=== PATIENT | female | born 1945 | race Caucasian/White ===

== ENCOUNTER → 2017-05-23 | Outpatient (CLI) | payer MEDICARE, BC ==
[~2017-05-23] MED LIST: ADV100/50 INH; ALB18R INH; BUPR-472 PO; CALC500T6 PO; CEFA-162 PO; CHOL100058 PO; CLON-298 PO; CLON-303 *; DOCU-416 PO; DUL30 PO; ERGO500029 PO; IBAN150T6 PO; IBUP-1455 PO; METO-733 PO; MIRT-18 PO; MONT10TA PO; MULT-1101 PO; OXYC-854 PO; OXYC-865 PO; PER PO; PRAZ2CAP26 PO; TRAM100T22 PO; TRAZ-156 PO; [UNRECOGNIZED DRUG - CODE] PO
--- NOTE | 2017-05-23 17:39 | RADIOLOGY IMAGING REPORT ---
FACILITY: [facility] PATIENT NAME: MAMI DALTON : [id number] MR: [id number] V: [id number] EXAM DATE: [id number] ORDERING PHYSICIAN: KELVIN WIGGINS TECHNOLOGIST: Alvaro Sanford PROCEDURE: STRESS ECHOCARDIOGRAPHY COMPARISON: None. INDICATIONS: HYPOTENSION/IRREGULAR HEART BEAT FINDINGS: After informed consent the patient was exercised using the Chi protocol. She was able to complete 6 min at which time she achieved 8.2 Mets & 83% of the predicted maximum heart rate. The test was stopped due to the fact that the patient was complaining of weakness in her knee. She was afraid she was going to fall. Patient had no complaints of any chest pains or chest pressures & no complaints of any shortness of breath. With exercise she had no ST segment changes of ischemia. There were no arrhythmias noted. Her baseline EKG showed a normal sinus rhythm with nonspecific ST segment changes in her lateral leads. Her blood pressure did come up with exercise but she has a low blood pressure to start with. It went from 90/64 to 120/76. ECHOCARDIOGRAPHIC PORTION OF THE STRESS TEST: At rest the patient had normal left ventricular systolic function of 76% with a Grade 1/4 decrease in diastolic function. Trace of mitral & tricuspid insufficiency possibly physiologic in nature. The estimated right ventricular systolic pressures are within normal ranges at 28mm Hg. With exercise the patient had normal hyperdynamic response to exercise with no left ventricular segmental wall motion abnormalities. CONCLUSION: 1. Normal stress echocardiograph with normal function systolically at rest with hyperdynamic response to exercise & low probability of ischemia. 2. Lowish blood pressure that did respond with exercise. 3. A trace of mitral & tricuspid insufficiency possibly physiologic in nature with normal right ventricular systolic pressures. 4. A Grade 1/4 decrease in diastolic function consistent with age. Dictated by: Ranjit Bragg M.D. on 05/23/2017 at 9:56 Transcribed by: JAILENE on 05/23/2017 at 16:14 Approved by: Ranjit Bragg M.D. on 05/23/2017 at 17:37 [facility]
--- NOTE | 2017-05-24 08:29 | RT STRESS TEST REPORT ---
FACILITY: [facility] PATIENT NAME: MAMI DALTON : [id number] MR: [id number] V: [id number] EXAM DATE: ORDERING PHYSICIAN: ANTONIA ALLEN TECHNOLOGIST: Luis Felipe Acquisition Time: 2017-05-23 07:16:08 Total Exercise Time: 00:06:03 Test Indications: Chest Discomfort Medications: unknown Protocol: COMLY/GRETEL Max HR: 123 BPM 83% of Pred: 147 BPM Max BP: 120/076 mmHG Max Work Load: 8.2 METS see echo report Confirmed by MAME GIFFORD ([id number]) on 05/24/2017 8:28:14 AM Referred By: Antonia Allen Overread By: MAME GIFFORD
== END ==
LOC: US 06:52
PROVIDERS: ATTEND Nurse Practitioner Family
DX: I34.0 Nonrheumatic mitral (valve) insufficiency (principal); I07.1 Rheumatic tricuspid insufficiency; I50.30 Unspecified diastolic (congestive) heart failure
CPT/HCPCS: 93017; 93325; 93350

== ENCOUNTER → 2017-07-21 | Outpatient (CLI) | payer MEDICARE, BC ==
[~2017-07-21] MED LIST changes: -TRAM100T22 PO; +TRAM100T8 PO
--- NOTE | 2017-07-21 15:49 | RADIOLOGY IMAGING REPORT ---
FACILITY: [facility] - [place] PATIENT NAME: Celi Hutchinson : 1945 MR: [id number] V: [id number] EXAM DATE: ORDERING PHYSICIAN: KELVIN WIGGINS TECHNOLOGIST: Location: [facility] [place] Patient: Celi Hutchinson : 1945 Visit/Account:[id number] Date of Sevice: 07/21/2017 Exam type: FINGER RIGHT 4TH DIGIT History: Unspecified sprain of right ring finger Comparison: None. Findings: There is no evidence of acute fracture dislocation involving the right fourth finger. No significant arthritic changes seen. No radiopaque foreign bodies are identified. IMPRESSION: 1. No evidence of acute fracture-dislocation involving the right fourth finger Report Dictated By: Matilda Gayle MD at 07/21/2017 3:43 PM Report E-Signed By: Matilda Gayle MD at 07/21/2017 3:45 PM WSN:[email or web address]
== END ==
LOC: RAD 13:19
PROVIDERS: ATTEND Nurse Practitioner Family
DX: S63.614A Unspecified sprain of right ring finger, initial encounter (principal); X58.XXXA Exposure to other specified factors, initial encounter

== ENCOUNTER → 2017-07-21 | Outpatient (CLI) | payer MEDICARE, BC | LOC: LAB 13:20 | PROVIDERS: ATTEND Urology | DX: R33.8 Other retention of urine (principal); N39.41 Urge incontinence; N39.44 Nocturnal enuresis; S63.614A Unspecified sprain of right ring finger, initial encounter; R82.99 Other abnormal findings in urine | CPT/HCPCS: 87088 ==

== ENCOUNTER → 2017-09-14 | Outpatient (CLI) | payer MEDICARE, BC | LOC: LAB 12:52 | PROVIDERS: ATTEND Urology | DX: N39.0 Urinary tract infection, site not specified (principal); B96.20 Unspecified Escherichia coli [E. coli] as the cause of diseases classified elsewhere | CPT/HCPCS: 81001; 87077; 87088; 87186 ==

== ENCOUNTER → 2017-09-22 | Outpatient (REF) | payer MEDICARE, BC | LOC: ZZSENDIN 14:32 | PROVIDERS: ATTEND Urology | DX: N39.0 Urinary tract infection, site not specified (principal); R82.79 Other abnormal findings on microbiological examination of urine | CPT/HCPCS: 87088 ==

== ENCOUNTER → 2018-05-07 | Outpatient (CLI) | payer MEDICARE, BC ==
[~2018-05-07] MED LIST changes: -CLON-298 PO; +CLON-331 PO; -TRAZ-156 PO; +TRAZ50TA34 PO
[2018-05-07 13:21] LABS: PLATELET COUNT, AUTOMATED 211 K/uL (150-450)
--- NOTE | 2018-05-07 13:50 | EKG ---
FACILITY: [facility] [place] PATIENT NAME: MAMI DALTON : [id number] MR: [id number] V: [id number] EXAM DATE: ORDERING PHYSICIAN: DOMINGO RAMOS TECHNOLOGIST: TERRENCE Amaya Reason : Blood Pressure : / mmHG Vent. Rate : 077 BPM Atrial Rate : 077 BPM P-R Int : 168 ms QRS Dur : 078 ms QT Int : 384 ms P-R-T Axes : 081 090 086 degrees QTc Int : 434 ms Normal sinus rhythm Rightward axis Septal infarct , age undetermined T wave abnormality, consider anterior ischemia Abnormal ECG No previous ECGs available Confirmed by DOMINGO GONZALEZ ([id number]) on 05/07/2018 10:10:35 PM Referred By: Confirmed By:DOMINGO GONZALEZ
--- NOTE | 2018-05-07 15:23 | RADIOLOGY IMAGING REPORT ---
FACILITY: [facility] - [place] PATIENT NAME: Celi Hutchinson : 1945 MR: [id number] V: [id number] EXAM DATE: ORDERING PHYSICIAN: SONIA RIVAS TECHNOLOGIST: Location: [facility] [place] Patient: Celi Hutchinson : 1945 Visit/Account:[id number] Date of Sevice: 05/07/2018 EXAMINATION: Cervical spine series, 3 views 05/07/2018 1:23 PM HISTORY: Preop. Rheumatoid arthritis. Rotator cuff tear in the shoulder. COMPARISON: None FINDINGS: Images include lateral neutral, flexed, and extended images. There is no abnormal atlantoa xial motion. Cervical vertebral body heights are well-preserved. Disc height loss and endplate spur ring from C3-4 downward most notably at C5-6. No acute bony finding. Precervical soft tissues are n ot thickened. IMPRESSION: Cervical spondylosis. No atlantoaxial instability evident. Report Dictated By: Geovany Mccall MD at 05/07/2018 3:18 PM Report E-Signed By: Geovany Mccall MD at 05/07/2018 3:19 PM WSN:[email or web address]
== END ==
LOC: RAD 13:02
PROVIDERS: ATTEND Orthopaedic Surgery
DX: Z01.812 Encounter for preprocedural laboratory examination (principal); Z01.810 Encounter for preprocedural cardiovascular examination; S46.011A Strain of muscle(s) and tendon(s) of the rotator cuff of right shoulder, initial encounter; M47.892 Other spondylosis, cervical region; R94.31 Abnormal electrocardiogram [ECG] [EKG]
CPT/HCPCS: 36415; 72040; 81001; 82040; 82247; 82310; 82374; 82435; 82565; 82947; 84075; 84132; 84155; 84295; 84450; 84460; 84520; 85025; 93005

== ENCOUNTER → 2018-05-09 | Outpatient (REF) | payer MEDICARE, BC | LOC: ZZSENDIN 13:16 | PROVIDERS: ATTEND Dentist | DX: D10.39 Benign neoplasm of other parts of mouth (principal) | CPT/HCPCS: 88305 ==

== ENCOUNTER 2018-05-29 01:13 | Inpatient (IN) | payer MEDICARE, BC ==
[2018-05-28 15:40] LABS: INR 0.99
[2018-05-29] VITALS (13 sets, daily range): BP systolic 86–140; BP diastolic 48–94
[~2018-05-29] VITALS: Ht 165.1 cm; Wt 74.8 kg
[~2018-05-29 01:13] MED LIST changes: +CEPH500C24 PO
[2018-05-29] MEDS ORDERED: ONDANSETRON 4 MG/2 ML VIAL ONE (09:24)
[2018-05-29] MEDS ORDERED: fentaNYL CITR 250 MCG/5 ML AMP ONE (09:24)
[2018-05-29] MEDS ORDERED: ROCURONIUM BROM 10 MG/ML 10 ML ONE (09:24)
[2018-05-29] MEDS ORDERED: PROPOFOL EMUL(*) 10MG/ML 20 ML 20 ML ONE (09:24)
[2018-05-29] MEDS ORDERED: SUGAMMADEX SOD 200 MG/2 ML SDV ONE (09:24)
[2018-05-29] MEDS ORDERED: LIDOCAINE MPF 1% 5 ML VIAL ONE (09:24)
[2018-05-29] MEDS ORDERED: DEXAMETHASONE SOD 4 MG/ML VIAL ONE (09:24)
[2018-05-29] MEDS ORDERED: KETAMINE HCL 200 MG/20 ML MDV ONE (09:25)
[2018-05-29] MEDS ORDERED: CELECOXIB 200 MG CAP PO ONE (11:00)
[2018-05-29] MEDS ORDERED: ROPIVACAINE 0.2% 20 ML VIAL ONE (11:00)
[2018-05-29] MEDS ORDERED: ACETAMINOPHEN 500 MG TAB PO ONE (11:00)
[2018-05-29] MEDS ORDERED: FAMOTIDINE 20 MG TAB PO ONE (11:00)
[2018-05-29] MEDS ORDERED: LIDOCAINE/SOD BICARB 8.4% SYR ID ONE (11:00)
[2018-05-29] MEDS ORDERED: TRANEXAMIC AC 1000 MG/10ML SDV 1,000 MG in DEXTROSE 5% 50 ML BAG 50 ML IV ONE (11:00)
[2018-05-29] MEDS ORDERED: PREGABALIN 75 MG CAPSULE PO ONE (11:00)
[2018-05-29] MEDS ORDERED: BACITRACIN 50000 UNIT/VIAL 100,000 UNIT in NS 0.9% 3000 ML IRRIGATION BAG 3,000 ML IR ONE (11:00)
[2018-05-29] MEDS ORDERED: CLINDAMYCIN(*) 900 MG/NS 50 ML 50 ML IVPB ONE (11:00)
[2018-05-29] MEDS ORDERED: LIDO/EPI 2% MPF 1:200,000 20ML ONE (11:00)
[2018-05-29] MEDS ORDERED: NORMOSOL R SOLN(*) 1000 ML BAG 1,000 ML IV PRN (11:00)
[2018-05-29] MEDS ORDERED: ROPIVACAINE/EPI/CLONIDINE/KET 50 ML SYRINGE INJ ONE (11:00)
[2018-05-29] MEDS ORDERED: MIDAZOLAM 2 MG/2 ML VIAL IVP PRN (11:00)
[2018-05-29] MEDS ORDERED: MAGNESIUM HYDROXIDE* 30ML UDCP PO PRN (13:55)
[2018-05-29] MEDS ORDERED: FLUSH 10 ML SYR IVP PRN (13:55)
[2018-05-29] MEDS ORDERED: BISACODYL 10 MG SUPP PR PRN (13:55)
[2018-05-29] MEDS ORDERED: ZOLPIDEM TARTRATE 5 MG TAB PO PRN (13:55)
[2018-05-29] MEDS ORDERED: diphenhydrAMINE 25 MG CAP PO PRN (13:55)
[2018-05-29] MEDS ORDERED: diphenhydrAMINE 50 MG/ML VIAL IVP PRN (13:55)
[2018-05-29] MEDS ORDERED: LR 1000 ML BAG 1000 ML IV PRN (13:55)
[2018-05-29] MEDS ORDERED: ONDANSETRON 4 MG/2 ML VIAL IVP PRN (13:55)
[2018-05-29] MEDS ORDERED: MAGNESIUM CITRATE 300 ML BTL PO PRN (13:55)
[2018-05-29] MEDS ORDERED: HYDROmorphone HCL 2 MG/ML SDV IVP PRN (13:55)
[2018-05-29] MEDS ORDERED: PROMETHAZINE 25 MG/ML 1 ML AMP IVP PRN (13:55)
[2018-05-29] MEDS ORDERED: fentaNYL CITR 100 MCG/2 ML AMP ONE (14:02)
--- NOTE | 2018-05-29 14:41 | OPERATIVE REPORT 1 ---
EVENT DATE: May 29, 2018 SURGEON: Gustabo Valenzuela MD ANESTHESIOLOGIST: Jose Arnold MD ANESTHESIA: General LMA. VERTICAL BORING MILL OPERATOR: DALLAS Mckeon, REGIONAL OPERATIONS MANAGER PREOPERATIVE DIAGNOSIS Right shoulder rotator cuff tear arthropathy. POSTOPERATIVE DIAGNOSIS Right shoulder rotator cuff tear arthropathy. PROCEDURE PERFORMED 1. Right reverse total shoulder arthroplasty. 2. Removal of implant deep x2 of the prior surgical anchors from the prior rotator cuff repair. FINDINGS The patient had a complete tear of the rotator cuff and arthritis showing associated with this. ESTIMATED BLOOD LOSS About 100 cc's. DRAINS None. COMPLICATIONS None. TOURNIQUET TIME Not applicable. IMPLANTS USED DJO Reverse with 32/-4 head, standard baseplate, four locking screws within the baseplate and an 8 standard stem with +4 liner. INDICATIONS AND HISTORY This patient is a 72-year-old female who presented to my clinic for evaluation of right shoulder pain and irritation. She had a prior rotator cuff repair but then had pain and irritation associated with it and was still continuing to have issues. An MRI revealed that she had a full-thickness rotator cuff tear and was retracted back to the interval of the glenoid. It did not look amenable for repair and so she wanted to go ahead with a reverse total shoulder arthroplasty today, May 29, 2018. We went over the risks and benefits associated with this and informed consent was obtained at the last clinic visit. We talked about there is no guarantee and it may not make it better and she may lose some motion associated with it and she may still have some discomfort. DESCRIPTION OF PROCEDURE The patient was brought into the operating room. She and the procedure were both verified. She was placed supine on the operating table and induced intubated by anesthesia. The right upper extremity was then prepped and draped in the usual fashion and a time-out was observed, verifying the correct patient and procedure. The standard incision was made over the deltopectoral interval after anesthetizing the skin with lidocaine. It was taken through the skin and subcutaneous tissue until I got down to the deltopectoral interval. I went through the deltopectoral interval down to the subscap and then was able to peel the subscap back and then tenodese what was left of the biceps in the pec area. Once I was able to do this, I was then able to dislocate the shoulder and I externally rotated in extended position. We then noted that there was no supraspinatus or infraspinatus attachment and then I removed the sutures and the anchors from the prior rotator cuff repair in this area. I then was able to cut the head without any difficulty and then retracted to the posterior side and remove some of the osteophytes off this. I then put retractors along the glenoid itself and then was able to remove the labrum and the remainder of the rotator cuff that was scarred and irritated down in this area and it did not look amenable for repair. Once I did this, I was then able to expose the glenoid completely and then drilled the central maritime pilot hole for the DJO System. I was then able to put in the standard threaded guide into the central portion of the glenoid and then ream over the top of it. Once I subsequently reamed, I then put in a standard baseplate from the DJO System and then put on the drill guides associated with this. I then drilled four screws with superior and inferior screws being longer than the anterior and posterior screws. We then locked those in place and had good fixation associated with the glenoid. I then put in a 32/-4 head without any major issues and then put in the set screw and then made sure it was tensioned well and the torque-limiting screwdriver was then tightened with a screw and it set in nicely. I then turned attention back to the humerus, where I was able to probe the central canal of the humerus and then ream up to a 10. We, therefore, then chose an 8 stem associated with it. I then did the pinecone reamer in order to make it amenable and curved at the top and then pass four sutures through the tuberosity area in order to repair the subscap at the end of the case. I then irrigated with copious amounts of saline, which I had throughout the case, and then put in the final prosthesis, which was an 8 prosthesis. I would then trial the standard liner. It did not quite have enough tension so, therefore, we then put in the +4 liner without any major issues associated with it. I then relocated and had excellent range of motion and tension associated with it and so this was the final prosthesis chosen. We then put in the final liner without any difficulty. Reduced the arm and put it through a range of motion and once again irrigated with copious amounts of saline and then closed the subscap using those four sutures and then the deltopectoral interval using the 2-0 Quill. This was then followed by irrigation again and then closure of the skin with a 2-0 Stratafix and then a 4-0 Monocryl in the skin. The wound was then dressed with Steri-Strips, gauze, 4x4's and a soft dressing. We put in a joint cocktail prior to closure and then the dressing was applied. The patient was awakened and extubated and transferred to the PACU in stable condition, where she will be admitted overnight. KIANA
--- NOTE | 2018-05-29 15:02 | RADIOLOGY IMAGING REPORT ---
[place] [facility] [place] NAME: Celi Hutchinson : 1945 MR: [id number] V: [id number] EXAM DATE: ORDERING PHYSICIAN: SONIA RIVAS TECHNOLOGIST: Location: [facility] Patient: Celi Hutchinson : 1945 Visit/Account:[id number] Date of Sevice: 05/29/2018 Exam type: SHOULDER 1 VIEW RIGHT History: post, r total shoulder arthroplasty Comparison: November 26, 2014. Findings: There is a reversed right shoulder arthroplasty that appears in good anatomic alignment on this singl e AP view. Soft tissue gas is noted adjacent to the right shoulder to be expected postoperatively IMPRESSION: Reversed right shoulder arthroplasty appears in good anatomic alignment on this single AP view Report Dictated By: Matilda Gayle MD at 05/29/2018 2:56 PM Report E-Signed By: Matilda Gayle MD at 05/29/2018 2:57 PM WSN:[email or web address]
--- NOTE | 2018-05-29 16:12 | Hospitalist Consultation ---
History of Present Illness Requesting Physician Dr. Valenzuela Reason for Consult Medical Management Chief Complaint s/p right shoulder replacement History of Present Illness She was admitted s/p right shoulder replacement. It is reported the surgery went well and without complication. History Problems: (1) Asthma Status: Chronic (2) Depression Status: Chronic (3) Rheumatoid arthritis Status: Chronic (4) Chronic UTI Status: Chronic Home Meds Reported Medications Cephalexin Monohydrate (CEPHALEXIN) 500 Mg Cap, 500 MG PO DAILY, CAP 05/22/18 Trazodone Hcl (TRAZODONE HCL) 50 Mg Tablet, 2 TAB PO QHS 05/22/18 Montelukast Sodium (SINGULAIR) 10 Mg Tablet, 1 TAB PO QDAY, TAB 08/04/15 Calcium Carbonate (CALCIUM) 500 Mg Tablet, 500 MG PO QDAY 01/14/15 Bupropion Hcl (WELLBUTRIN XL) 150 Mg Tab.er.24h, 150 MG PO QAM, TAB 01/14/15 Prazosin Hcl (PRAZOSIN HCL) 2 Mg Capsule, 2 MG PO HS, CAPSULE 07/10/13 Albuterol Sulfate (VENTOLIN HFA) 18 Gm Inh, 2 PUFF INH PRN, #18 GM TWO PUFFS EVERY FOUR TO SIX HOURS NEEDED 07/10/13 Salmeterol Xinaf/Fluticasone (Advair 100/50 Diskus) 100 Mcg/50 Mcg Inh, 2 PUFF INH BID PRN, 0 Refills 1 PUFF 10/23/09 Duloxetine Hcl (Cymbalta) 30 Mg Capcr, 60 MG PO QAM, 0 Refills 10/23/09 Discontinued Reported Medications Oxycodone Hcl/Acetaminophen (PERCOCET 5-325 MG TABLET) 1 Each Tablet, 1-2 EACH PO Q4-6H PRN for PAIN, #60 TAB 08/11/15 Multivits Min/Iron/Fa/Herb#186 (HAIR, SKIN & NAILS CAPLET) 1 Each Tablet, 1 EACH PO QDAY 01/14/15 Cholecalciferol (Vitamin D3) (VITAMIN D) 1,000 Unit Capsule, 4000 INTLU PO QDAY 01/14/15 Allergies: Coded Allergies: Sulfa (Sulfonamide Antibiotics) (Verified Allergy, Severe, HIVES, 08/04/15) latex (Verified Allergy, Severe, WHEEZING AND SHORTNESS OF BREATH, 08/04/15) ropinirole (Verified Allergy, Severe, BREATHING TROUBLE, 08/04/15) thiopental (Verified Allergy, Severe, WHEEZING AND ASTHMA ATTACK, 08/10/15) Penicillins (Verified Allergy, Intermediate, RASH, 08/04/15) erythromycin base (Verified Allergy, Intermediate, RASH, 08/04/15) Uncoded Allergies: sodium pentathol (Allergy, Severe, wheezing and asthma attack, 12/18/14) Patient History: FH: breast cancer Siblings x 1 FH: cancer MOTHER FH: heart disease FATHER Hx Smoking: No Smoking Status: Never Smoker Exposure to Second Hand Smoke?: No Caffeine Intake: Coffee Caffeine/Cups Per Day: 2 CPD Hx Alcohol Use: Yes Hx Substance Use Disorder: No Social Drug Use: Never Review of Systems All Systems Reviewed/Normal: Yes, Except as Noted Exam Vital Signs Vital Signs Date Time Temp Pulse Resp B/P (MAP) Pulse Ox O2 Delivery O2 Flow Rate FiO2 05/29/18 16:00 68 111/70 (84) 95 Nasal Cannula 1.5 05/29/18 15:15 96.2 12 General Appearance: Alert, Awake, No Acute Distress, Afebrile Neuro: No Gross deficits Cardiovascular: Regular Rate and Rhythm Respiratory: No Respiratory Distress, Clear to Auscultation GI: Abd Soft and Non-Tender Psych: Alert & Oriented X3, Appropriate Mood & Affect Assessment and Plan Problems: (1) Status post replacement of right shoulder joint Status: Acute Assessment & Plan: Followed by Dr. Valenzuela (2) Rheumatoid arthritis Status: Chronic Assessment & Plan: She recently received diagnosis. At this time, she is not on treatment. (3) Depression Status: Chronic Assessment & Plan: She is on chronic treatment with Wellbutrin, Cymbalta, Trazodone. Continue. (4) Asthma Status: Chronic Assessment & Plan: She is on chronic treatment with albuterol and Advair inhalers. Continue. (5) Chronic UTI Status: Chronic Assessment & Plan: She has recently been placed on senior care antibiotic Keflex. This will be held at this time secondary to IV antibiotics. Venous Thromboembolism Antithrombotics Is Pt On Any Antithrombotics?: No Exam Sepsis Risk: No Definite Risk SIMI FARIA May 29, 2018 16:12
--- NOTE | 2018-05-29 16:15 | NUR ---
Occupational Therapy Impression Pt alert and agreeable to OT evaluation. Arrived to med/surg shortly before OT arrival. Pt educated on precautions, wear/fit of sling, and ther ex per protocol. Evaluation completed supine in bed. Pt declined further needs/concerns at this time. Plan for visit in AM to address ADLs and ther ex. Occupational Therapy Goals Patient's Goal
[2018-05-29] MEDS: SALMETEROL/FLUTIC 100/50 1 INH INH SCH (17:16)
[2018-05-29] MEDS ORDERED: ALBUTEROL 8 GM INHALER INH PRN (18:00)
[2018-05-29] MEDS: CLINDAMYCIN(*) 600 MG/NS 50 ML 50 ML IVPB SCH (20:22)
[2018-05-29] MEDS ORDERED: NS(*) 0.9% 500 ML BAG 500 ML ONE (20:23)
[2018-05-29] MEDS ORDERED: PRAZOSIN HCL 1 MG CAP PO SCH (21:00)
[2018-05-29] MEDS ORDERED: traZODone HCL 50 MG TAB PO SCH (21:00)
[2018-05-30] MEDS: CLINDAMYCIN(*) 600 MG/NS 50 ML 50 ML IVPB SCH (04:37)
[2018-05-30] MEDS: SALMETEROL/FLUTIC 100/50 1 INH INH SCH (05:38)
[2018-05-30 05:41] VITALS: BP 124/67
[2018-05-30 07:00] VITALS: BP 106/67
[2018-05-30] MEDS ORDERED: OXYC-865 PO (07:02)
[2018-05-30] MEDS ORDERED: DULoxetine HCL 30 MG CAPCR PO SCH (09:00)
[2018-05-30] MEDS ORDERED: MONTELUKAST SODIUM 10 MG TAB PO SCH (09:00)
[2018-05-30] MEDS ORDERED: buPROPion XL 150 MG TABCR PO SCH (09:00)
--- NOTE | 2018-05-30 11:21 | Hospitalist Progress Note ---
Subjective Progress Notes Subjective She was admitted s/p shoulder surgery. She has no complaints this morning. She had no acute events overnight. Patient Complains of: Cardiovascular: No: Chest Pain Respiratory: No: Shortness of Breath Physical Exam Vital Signs Date Time Temp Pulse Resp B/P (MAP) Pulse Ox O2 Delivery O2 Flow Rate FiO2 05/30/18 08:44 91 Room Air 05/30/18 07:00 96.5 48 16 106/67 (80) 05/30/18 05:41 1.0 Intake and Output 05/30/18 07:00 Intake Total 1955 ml Balance 1955 ml Intake Oral 300 ml IV Total 1655 ml # Voids 4 General Appearance: Alert, Awake, No Acute Distress, Afebrile Neuro: No Gross deficits Cardiovascular: Regular Rate and Rhythm Respiratory: No Respiratory Distress, Clear to Auscultation GI: Soft and Non-Tender Psych: Alert & Oriented X3, Appropriate Mood & Affect Result Diagram: 05/30/18 3109 Assessment and Plan Problems: (1) Status post replacement of right shoulder joint Status: Acute Assessment & Plan: Followed by Dr. Valenzuela (2) Rheumatoid arthritis Status: Chronic Assessment & Plan: She recently received diagnosis. At this time, she is not on treatment. (3) Depression Status: Chronic Assessment & Plan: She is on chronic treatment with Wellbutrin, Cymbalta, Trazodone. Continue. (4) Asthma Status: Chronic Assessment & Plan: She is on chronic treatment with albuterol and Advair inhalers. Continue. (5) Chronic UTI Status: Chronic Assessment & Plan: She has recently been placed on detention antibiotic Keflex. This will be held at this time secondary to IV antibiotics, but will resume tomorrow at home. Exam Sepsis Risk: No Definite Risk SIMI FARIA May 30, 2018 11:21
--- NOTE | 2018-05-30 12:03 | NUR ---
Occupational Therapy Impression Pt alert and agreeable to OT tx. Reviewed precautions, wear/fit of sling, ADLs, and ther ex per Dr. Valenzuela protocol. Independent ther ex. Independent UB/LB dressing. Independent toileting. Independent grooming/hygiene. Independent bed mobility. Independent ambulation. SpO2 WNL on room air throughout. Pt reporting baseline dizziness and use of 4WW/cane at home. Pt with no concerns regarding discharge home and will have spouse assist as needed. Pt with no further questions/concerns at end of OT tx. Occupational Therapy Goals Patient's Goal
== END 2018-05-30 11:21 | disposition home or self-care (01) | DRG 483 ==
LOC: OR 01:13 → MED 15:15
PROVIDERS: ADMIT Orthopaedic Surgery; ATTEND Orthopaedic Surgery
PROC: 0RPJ04Z Removal of Internal Fixation Device from Right Shoulder Joint, Open Approach (ICD-10-PCS; 2018-05-29)
PROC: 0RRJ00Z Replacement of Right Shoulder Joint with Reverse Ball and Socket Synthetic Substitute, Open Approach (ICD-10-PCS; principal; 2018-05-29 11:56)
DX: M19.011 Primary osteoarthritis, right shoulder (principal); J45.909 Unspecified asthma, uncomplicated; M79.7 Fibromyalgia; Z87.440 Personal history of urinary (tract) infections; Z88.2 Allergy status to sulfonamides; F32.9 Major depressive disorder, single episode, unspecified; M06.9 Rheumatoid arthritis, unspecified; Z88.0 Allergy status to penicillin; Z88.8 Allergy status to other drugs, medicaments and biological substances; Z91.040 Latex allergy status
CPT/HCPCS: 36415; 85014; 85018; 85610; 86850; 86900; 86901; 97165; A4565; C1776; J1100; J1170; J2001; J2250; J2405; J2704; J2795; J3010; J3490; J3535; J7060

== ENCOUNTER 2018-06-22 14:24 | Emergency (ER) | payer MEDICARE, BC ==
[~2018-06-22 14:24] MED LIST changes: -MULT-1101 PO; +MULT-123 PO
[2018-06-22 14:30] VITALS: BP 102/84
--- NOTE | 2018-06-22 14:35 | ER Report ---
History and Physical Time Seen By MD: 14:35 Hx. of Stated Complaint: fall this am - left ankle and knee pain. HPI/ROS CHIEF COMPLAINT: Fall HISTORY OF PRESENT ILLNESS: This is a 73-year-old female presents to the emergency department for a fall. Patient states she has "fainting episodes often", today she was walking down the [address] [place] her [place], when she had a "fainting episode", landed on her buttock's, then fell backwards hitting her head. She came to immediately after, her was there. This did happen this morning, since then she's had increased pain in her left knee, lateral lower leg as well as her left ankle with decreased range of motion. No headaches, no blurred vision, no C-spine tenderness or thoracic discomfort. She denies chest pain or shortness of breath. She does take large quantities of medications for her night terrors, some of which could be concerning to her syncopal episodes. No recent fever or chills. No nausea or vomiting. No chest pain or shortness of breath. REVIEW OF SYSTEMS: Constitutional: No fever, no chills. Eyes: No discharge. ENT: No sore throat. Cardiovascular: No chest pain, no palpitations. Respiratory: No cough, no shortness of breath. Gastrointestinal: No abdominal pain, no vomiting. Genitourinary: No hematuria. Musculoskeletal: As above. Skin: No rashes. Neurological: As above. Allergies: Coded Allergies: Sulfa (Sulfonamide Antibiotics) (Verified Allergy, Severe, HIVES, 06/22/18) latex (Verified Allergy, Severe, WHEEZING AND SHORTNESS OF BREATH, 06/22/18) ropinirole (Verified Allergy, Severe, BREATHING TROUBLE, 06/22/18) thiopental (Verified Allergy, Severe, WHEEZING AND ASTHMA ATTACK, 06/22/18) Penicillins (Verified Allergy, Intermediate, RASH, 06/22/18) erythromycin base (Verified Allergy, Intermediate, RASH, 06/22/18) Uncoded Allergies: sodium pentathol (Allergy, Severe, wheezing and asthma attack, 12/18/14) Home Meds Reported Medications Aspirin (ASPIR 81) 81 Mg Tablet.dr, 81 MG PO QDAY, TAB 06/22/18 Bupropion Hcl (BUPROPION HCL) 75 Mg Tablet, 75 MG PO QDAY, TAB 06/22/18 Clonazepam (CLONAZEPAM) 0.5 Mg Tablet, 0.5 MG PO QHS, #6 TAB 06/22/18 Trazodone Hcl (TRAZODONE HCL) 50 Mg Tablet, 2 TAB PO QHS 05/22/18 Montelukast Sodium (SINGULAIR) 10 Mg Tablet, 1 TAB PO QDAY, TAB 08/04/15 Bupropion Hcl (WELLBUTRIN XL) 150 Mg Tab.er.24h, 150 MG PO QAM, TAB 01/14/15 Prazosin Hcl (PRAZOSIN HCL) 2 Mg Capsule, 2 MG PO HS, CAPSULE 07/10/13 Albuterol Sulfate (VENTOLIN HFA) 18 Gm Inh, 2 PUFF INH PRN, #18 GM TWO PUFFS EVERY FOUR TO SIX HOURS NEEDED 07/10/13 Salmeterol Xinaf/Fluticasone (Advair 100/50 Diskus) 100 Mcg/50 Mcg Inh, 2 PUFF INH BID PRN, 0 Refills 1 PUFF 10/23/09 Duloxetine Hcl (Cymbalta) 30 Mg Capcr, 60 MG PO QAM, 0 Refills 10/23/09 Discontinued Reported Medications Oxycodone Hcl/Acetaminophen (PERCOCET 5-325 MG TABLET) 1 Each Tablet, 1 EACH PO Q4H PRN for PAIN, #40 TAB 05/30/18 Cephalexin Monohydrate (CEPHALEXIN) 500 Mg Cap, 500 MG PO DAILY, CAP 05/22/18 Calcium Carbonate (CALCIUM) 500 Mg Tablet, 500 MG PO QDAY 01/14/15 Past Medical/Surgical History The patient has a past medical and surgical history of cardiac catheterization at age 10, murmur, angina, irregular heartbeat, hypocholesterolemia, bronchitis, asthma, pneumonia, frequent urinary tract infections, polymyalgia, osteopenia, trigger finger, carpal tunnel syndrome, couple tunnel release, severe neck and back arthritis and pain, sinusitis, possible detached retina, tonsillectomy, rheumatoid arthritis, cellulitis of left ankle and foot, PTSD and night terrors, ventral hernia repair, appendectomy, hysterectomy, right shoulder surgery, tonsillectomy, cataract surgery. Reviewed Nurses Notes: Yes Hx Smoking: No Smoking Status: Never Smoker Exposure to Second Hand Smoke?: No Hx Substance Use Disorder: No Hx Alcohol Use: Yes Constitutional Vital Sign - Last 24 Hours 06/22/18 14:30 Temp 97.7 Pulse 71 Resp 20 B/P (MAP) 102/84 Pulse Ox 94 O2 Delivery Room Air Physical Exam General Appearance: The patient is alert, has no immediate need for airway protection and no signs of toxicity. Eyes: Pupils equal and round no pallor or injection. ENT, Mouth: Mucous membranes are moist. Respiratory: There are no retractions, lungs are clear to auscultation. Cardiovascular: Regular rate and rhythm. Gastrointestinal: Abdomen is soft and non tender, no masses, bowel sounds n ormal. Neurological: Alert nor into 4. Moving all extremities. Following all commands. No focal neuro deficits. Skin: Very superficial abrasion to the right medial ankle. Swelling to the ankle. Musculoskeletal: Neck is supple non tender. Extremities pain to the left medial knee with palpation, pain to the proximal fibula with palpation, pain to the left lateral and medial malleoli. No obvious deformities or crepitus identified. DIFFERENTIAL DIAGNOSIS: After history and physical exam differential diagnosis was considered for syncope including but not limited to vasovagal syncope, arrhy thmia, dehydration, and blood loss. Medical Decision Making Data Points Result Diagram: 06/22/18 1507 06/22/18 1507 Laboratory Hematology Test 06/22/18 15:07 Red Blood Count 4.34 M/uL (4.17-5.56) Mean Corpuscular Volume 91.8 fL (80.0-96.0) Mean Corpuscular Hemoglobin 30.6 pg (26.0-33.0) Mean Corpuscular Hemoglobin Concent 33.4 g/dL (32.0-36.0) Red Cell Distribution Width 13.8 % (11.5-14.5) Mean Platelet Volume 8.7 fL (7.2-11.1) Neutrophils (%) (Auto) 64.2 % (39.4-72.5) Lymphocytes (%) (Auto) 23.0 % (17.6-49.6) Monocytes (%) (Auto) 9.7 % (4.1-12.4) Eosinophils (%) (Auto) 2.4 % (0.4-6.7) Basophils (%) (Auto) 0.7 % (0.3-1.4) Nucleated RBC Relative Count (auto) 0.1 /100WBC Neutrophils # (Auto) 6.5 K/uL (2.0-7.4) Lymphocytes # (Auto) 2.3 K/uL (1.3-3.6) Monocytes # (Auto) 1.0 K/uL (0.3-1.0) Eosinophils # (Auto) 0.2 K/uL (0.0-0.5) Basophils # (Auto) 0.1 K/uL (0.0-0.1) Nucleated RBC Absolute Count (auto) 0.01 K/uL Sodium Level 138 mmol/L (137-145) Potassium Level 3.8 mmol/L (3.5-5.0) Chloride Level 102 mmol/L (98-107) Carbon Dioxide Level 24 mmol/L (22-31) Blood Urea Nitrogen 22 mg/dl (7-18) Creatinine 1.30 mg/dl (0.52-1.04) Glomerular Filtration Rate Calc 39.9 Random Glucose 115 mg/dl (75-110) Calcium Level 9.1 mg/dl (8.4-10.2) Total Bilirubin 0.3 mg/dl (0.2-1.3) Aspartate Amino Transf (AST/SGOT) 22 U/L (0-35) Alanine Aminotransferase (ALT/SGPT) 30 U/L (0-56) Alkaline Phosphatase 72 U/L (0-126) Troponin I < 0.012 ng/ml Total Protein 6.5 g/dl (6.3-8.2) Albumin 4.0 g/dl (3.5-5.0) Chemistry Test 06/22/18 15:07 White Blood Count 10.1 k/uL (4.5-11.0) Red Blood Count 4.34 M/uL (4.17-5.56) Hemoglobin 13.3 g/dL (12.0-16.0) Hematocrit 39.8 % (34.0-47.0) Mean Corpuscular Volume 91.8 fL (80.0-96.0) Mean Corpuscular Hemoglobin 30.6 pg (26.0-33.0) Mean Corpuscular Hemoglobin Concent 33.4 g/dL (32.0-36.0) Red Cell Distribution Width 13.8 % (11.5-14.5) Platelet Count 280 K/uL (150-450) Mean Platelet Volume 8.7 fL (7.2-11.1) Neutrophils (%) (Auto) 64.2 % (39.4-72.5) Lymphocytes (%) (Auto) 23.0 % (17.6-49.6) Monocytes (%) (Auto) 9.7 % (4.1-12.4) Eosinophils (%) (Auto) 2.4 % (0.4-6.7) Basophils (%) (Auto) 0.7 % (0.3-1.4) Nucleated RBC Relative Count (auto) 0.1 /100WBC Neutrophils # (Auto) 6.5 K/uL (2.0-7.4) Lymphocytes # (Auto) 2.3 K/uL (1.3-3.6) Monocytes # (Auto) 1.0 K/uL (0.3-1.0) Eosinophils # (Auto) 0.2 K/uL (0.0-0.5) Basophils # (Auto) 0.1 K/uL (0.0-0.1) Nucleated RBC Absolute Count (auto) 0.01 K/uL Glomerular Filtration Rate Calc 39.9 Calcium Level 9.1 mg/dl (8.4-10.2) Total Bilirubin 0.3 mg/dl (0.2-1.3) Aspartate Amino Transf (AST/SGOT) 22 U/L (0-35) Alanine Aminotransferase (ALT/SGPT) 30 U/L (0-56) Alkaline Phosphatase 72 U/L (0-126) Troponin I < 0.012 ng/ml Total Protein 6.5 g/dl (6.3-8.2) Albumin 4.0 g/dl (3.5-5.0) EKG/Imaging EKG Interpretation 12 lead EKG: Time of EKG 1500. Rhythm: Normal sinus rhythm, ventricular rate 66 bpm. [place]: normal QRS: Low voltage. ST segments: No ST depression or elevation identified, poor T-wave progression in V2, V3, V4. [place] [facility] [place] Celi Hutch[place] : 1945 Visit/Account:[id number] Date of Sevice: 06/22/2018 Left tibia/fibula Indication: Fall Comparison: None available Findings: Lateral projection demonstrates anterior cortical step-off with obliquely oriented fracture involving the proximal one third of the fibula. IMPRESSION: Obliquely oriented, nondisplaced fracture involving the proximal one third shaft of the fibula. Report Dictated By: Jacques Bang MD at 06/22/2018 4:02 PM Report E-Signed By: Jacques Bang MD at 06/22/2018 4:03 PM WSN:[facility] [place] [facility] [place] Celi Hutchinson : 1945 Visit/Account:[id number] Date of Sevice: 06/22/2018 Left knee Indication: Syncope, fall Comparison: None available Findings: Linear chondrocalcinosis is noted. Joint spaces are preserved. No fracture or destructive osseous finding. No effusion. IMPRESSION: 1. Chondrocalcinosis. No acute bony finding. Report Dictated By: Jacques Bang MD at 06/22/2018 4:00 PM Report E-Signed By: Jacques Bang MD at 06/22/2018 4:02 PM WSN:[facility] [place] [facility] [place] Celi Hutchinson : 1945 Visit/Account:[id number] Date of Sevice: 06/22/2018 2 VIEWS CHEST INDICATION: Syncope, fall COMPARISON: X-ray examination chest December 2012 FINDINGS: Heart size within normal limits. Lungs are clear without focal infiltrate. No effusion or pneumothorax. No acute bony finding. IMPRESSION: 1. No acute cardiopulmonary process. Report Dictated By: Jacques Bang MD at 06/22/2018 3:59 PM Report E-Signed By: Jacques Bang MD at 06/22/2018 4:00 PM [facility] [place] [facility] [place]: Celi Hutchinson : 1945 Visit/Account:[id number] Date of Sevice: 06/22/2018 3 views left ankle Indication: Fall, pain Comparison: X-ray examination of the ankle from January 02, 2015 Findings: Tibia and fibula are intact. Mortise is symmetric. Talar dome is unremarkable. Probable joint effusion without acute osseous finding. Mild plantar calcaneal spurring. IMPRESSION: 1. Soft tissue swelling. Lateral projection demonstrates findings suspicious for joint effusion. No acute bony finding. Report Dictated By: Jacques Bang MD at 06/22/2018 4:03 PM Report E-Signed By: Jacques Bang MD at 06/22/2018 4:04 PM WSN:[facility] ED Course/Re-evaluation Clinical Indication for ER IV: IV Access ED Course The patient was admitted to room. A history and physical were obtained. Differential diagnoses were considered. An x-ray of the right knee and ankle were negative for any acute osseous abnormalities, there was a effusion noted on the ankle x-ray, there was a nondisplaced proximal fibular fracture very linear on the lateral view. I discussed this with the patient, I did recommend a walking boot. I did contact Dr. Leal as noted below, he was able to review the images and felt that the walking boot would be sufficient, he will see her in his office next week for reevaluation. Given the recurrent syncopal episodes and near syncopal episodes the patient has been having over the last several months, and this was a component to her evaluation in the emergency department, I did start an IV, CBC, CMP troponin and EKG along with chest x-ray were done. normal EKG. CBC unremarkable, creatinine 1.30, historically the creatinine was 11.2, negative troponin. I did review the results with the patient, she states she does drink large quantities of fluid, I did recommend reevaluation early next we ek with her primary care provider as well as her neurologist, I am concerned that the medications she is currently taking arc and tripping to her increase in creatinine as well as her near syncopal and syncopal episodes. The patient was in agreement with this plan of care and discharged home. 06/22/2018 5:00:51 pm to speak with Dr[address] Leal regarding the patient's injury, he was able to evaluate the images. Decision to Disposition Date: Jun 22, 2018 Decision to Disposition Time: 16:57 Depart Departure Latest Vital Signs Vital Signs Date Time Temp Pulse Resp B/P (MAP) Pulse Ox O2 Delivery O2 Flow Rate FiO2 06/22/18 14:30 97.7 71 20 102/84 94 Room Air Impression: Primary Impression: Near syncope Additional Impressions: Frequent falls Left fibular fracture Condition: Improved Disposition: HOME OR SELF-CARE Referrals: KELVIN WIGGINS (PCP) 1 Week MANUEL LEAL MD 1 Week Patient Instructions: Fall Prevention (ED), Near Syncope (ED) Additional Instructions: You have a broken bone in the fibula of your left leg. Please call Dr. Leal's office Monday morning to schedule a follow-up appointment for next Monday. You must also call your primary care provider thing Monday for reevaluation of year frequent falls and near syncopal episodes. He also need to speak with your neurologist and reevaluate the medications are currently taking as I feel these are lester to the frequent falls. Your kidney function is also increasing, I am concerned that some of the medications or taking are lester to this please reevaluate with your primary care provider. Be sure to drink plenty of fluids. Wear the walking boot anytime or up moving around. Please consider using a walker to assist you to you follow-up with Dr. Leal. Return to the ER for any concerns or worsening symptoms. Problem Qualifiers Additional Impressions: Left fibular fracture Encounter type: initial encounter Fibula location: shaft Fracture type: closed Fracture morphology: oblique Fracture alignment: nondisplaced Qualified Codes: S82.435A - Nondisplaced oblique fracture of shaft of left fibula, initial encounter for closed fracture MARILYN JAVED-SNEHAL Jun 22, 2018 14:35
[2018-06-22] MEDS ORDERED: ASPI-1471 PO (14:39)
[2018-06-22] MEDS ORDERED: CLON-331 PO (14:39)
[2018-06-22] MEDS ORDERED: BUPR-147 PO (14:39)
--- NOTE | 2018-06-22 15:15 | EKG ---
FACILITY: [facility] PATIENT NAME: MAMI DALTON : [id number] MR: [id number] V: [id number] EXAM DATE: ORDERING PHYSICIAN: MARILYN JAVED TECHNOLOGIST: MARGI Test Reason : SYNCOPE Blood Pressure : / mmHG Vent. Rate : 066 BPM Atrial Rate : 066 BPM P-R Int : 166 ms QRS Dur : 082 ms QT Int : 398 ms P-R-T Axes : 062 071 065 degrees QTc Int : 417 ms Normal sinus rhythm with sinus arrhythmia Low voltage QRS Borderline ECG When compared with ECG of 07-MAY-2018 13:44, T wave inversion less evident in Anterior leads Confirmed by DOMINGO GONZALEZ ([id number]) on 06/23/2018 6:24:40 AM Referred By: MARILYN Confirmed By:DOMINGO GONZALEZ
[2018-06-22 15:27] LABS: PLATELET COUNT, AUTOMATED 280 K/uL (150-450)
--- NOTE | 2018-06-22 16:06 | RADIOLOGY IMAGING REPORT ---
FACILITY: [facility] [place] PATIENT NAME: Celi Hutchinson : 1945 MR: [id number] V: [id number] EXAM DATE: ORDERING PHYSICIAN: MARILYN JAVED TECHNOLOGIST: [place] [facility] [place]eli Hutch[place] : 1945 Visit/Account:[id number] Date of Sevice: 06/22/2018 2 VIEWS CHEST INDICATION: Syncope, fall COMPARISON: X-ray examination chest December 2012 FINDINGS: Heart size within normal limits. Lungs are clear without focal infiltrate. No effusion or pneumothorax. No acute bony finding. IMPRESSION: 1. No acute cardiopulmonary process. Report Dictated By: Jacques Bang MD at 06/22/2018 3:59 PM Report E-Signed By: Jacques Bang MD at 06/22/2018 4:00 PM WSN:[email or web address]
--- NOTE | 2018-06-22 16:07 | RADIOLOGY IMAGING REPORT ---
FACILITY: [facility] PATIENT NAME: Celi Hutchinson : 1945 MR: [id number] V: [id number] EXAM DATE: ORDERING PHYSICIAN: MARILYN JAVED TECHNOLOGIST: Location: [facility] Patient: Celi Hutchinson : 1945 Visit/Account:[id number] Date of Sevice: 06/22/2018 Left knee Indication: Syncope, fall Comparison: None available Findings: Linear chondrocalcinosis is noted. Joint spaces are preserved. No fracture or destructive osseous f inding. No effusion. IMPRESSION: 1. Chondrocalcinosis. No acute bony finding. Report Dictated By: Jacques Bang MD at 06/22/2018 4:00 PM Report E-Signed By: Jacques Bang MD at 06/22/2018 4:02 PM WSN:[email or web address]
--- NOTE | 2018-06-22 16:07 | RADIOLOGY IMAGING REPORT ---
[place] [facility] [place] NAME: Celi Hutchinson : 1945 MR: [id number] V: [id number] EXAM DATE: ORDERING PHYSICIAN: MARILYN JAVED TECHNOLOGIST: Location: [facility] [place] Patient: Celi Hutchinson : 1945 Visit/Account:[id number] Date of Sevice: 06/22/2018 Left tibia/fibula Indication: Fall Comparison: None available Findings: Lateral projection demonstrates anterior cortical step-off with obliquely oriented fracture involving the proximal one third of the fibula. IMPRESSION: Obliquely oriented, nondisplaced fracture involving the proximal one third shaft of the fibula. Report Dictated By: Jacques Bang MD at 06/22/2018 4:02 PM Report E-Signed By: Jacques Bang MD at 06/22/2018 4:03 PM WSN:[email or web address]
--- NOTE | 2018-06-22 16:09 | RADIOLOGY IMAGING REPORT ---
FACILITY: [facility] [place] PATIENT NAME: Celi Hutchinson : 1945 MR: [id number] V: [id number] EXAM DATE: ORDERING PHYSICIAN: MARILYN JAVED TECHNOLOGIST: Location: [facility] Patient: Celi Hutchinson : 1945 Visit/Account:[id number] Date of Sevice: 06/22/2018 3 views left ankle Indication: Fall, pain Comparison: X-ray examination of the ankle from January 02, 2015 Findings: Tibia and fibula are intact. Mortise is symmetric. Talar dome is unremarkable. Probable joint effu aba without acute osseous finding. Mild plantar calcaneal spurring. IMPRESSION: 1. Soft tissue swelling. Lateral projection demonstrates findings suspicious for joint effusion. N o acute bony finding. Report Dictated By: Jacques Bang MD at 06/22/2018 4:03 PM Report E-Signed By: Jacques Bang MD at 06/22/2018 4:04 PM WSN:[email or web address]
== END 2018-06-22 17:00 | disposition home or self-care (01) ==
LOC: ER 14:27
DX: S82.435A Nondisplaced oblique fracture of shaft of left fibula, initial encounter for closed fracture (principal); R55 Syncope and collapse; Z91.81 History of falling
CPT/HCPCS: 71046; 73564; 82040; 82247; 82310; 82374; 82435; 82565; 82947; 84075; 84132; 84155; 84295; 84450; 84460; 84484; 84520; 85025; 93005; 99284

== ENCOUNTER 2018-09-14 13:00 | Outpatient (RCR) | payer MEDICARE, BC ==
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
--- NOTE | 2018-07-11 09:58 | PT PLAN OF CARE ---
Physician: Gustabo Valenzuela MD Patient is being seen: 3x/Week Therapist: Maria E Amaya, PT, DPT, CLT Medical Diagnosis: Right reverse TSA, Surgical anchor removal from prior RTC repair Treatment Diagnosis: Right reverse TSA, Surgical anchor removal from prior RTC repair Date of Onset: 05/29/18 Date of Initial Evaluation: 06/18/18 Date patient was last seen: 07/11/18 Number of treatments: 10 Number of cancellations/No shows: 0 INTERVENTIONS: Manual Therapy/STM/MET Strengthening/condition Ice/Heat Range of Motion Spinal Stabilization Ultrasound Stretching Iontophoresis Neuromuscular Re-ed Closed Chain Program Electrical Stim Posture/Body mechanics Biofeedback Home Exercise Program Mech./Manual Traction Therapeutic Activities GOALS: In 3 weeks pt will increase right shoulder ROM to equal to that of the contralateral limb for improved function with ADL's. Near MET In 6 weeks pt will improve right shoulder strength to equal to that of the contralateral limb for improved function with ADL's. In Progress In 6 weeks pt will reduce QuickDASH disability rating to less than 25% for improved function with ADL's. In Progress PATIENT'S GOAL: Improve shoulder strength and function. Status of Patient's Goals: In Progress Patient Compliance: Good Prognosis: Good Reasons for continuing therapy: Celi shows near full AROM in all planes at this time with stiffness in end ranges requiring over pressure to achieve full motion. With progressed healing pt is to start strengthening exercises over the next couple weeks to return shoulder function to prior level. At this time external and internal rotation remains weakest with difficulty moving agains gravity. Pt remains to have occasional pain with impingement status when poor scapular mechanics are conducted but only requires cuing 25% of the time to correct. Posture: Rounded shoulder posture ROM: Shoulder AROM (L,R): flexion: 160, 160, abd: 165, 162, ER: 75, 70, IR: T2, T8 level Strength: Shoulder MMT (L, R) only: flexion: 5/5, 4/5 ext: 5/5, 5/5 abd: 5/5, 5/5 ER: 4+/5, 4-/5, IR: 5/5, 4-/5 If you have any questions, please feel free to contact me at [phone]. Thank you, Maria E Amaya, PT, DPT, CLT MTDD
--- NOTE | 2018-08-06 18:13 | PT PLAN OF CARE ---
Physician: Gustabo Valenzuela MD Patient is being seen: 2-3x/Week Therapist: Maria E Amaya, PT, DPT, CLT Medical Diagnosis: Right reverse TSA, Surgical anchor removal from prior RTC repair, Left proximal fibular fx and ankle sprain. Treatment Diagnosis: Right reverse TSA, Surgical anchor removal from prior RTC repair, Left proximal fibular fx and ankle sprain. Date of Onset: 05/29/18 Date of Initial Evaluation: 06/18/18 Date patient was last seen: 08/06/18 Number of treatments: 18 Number of cancellations/No shows: 2 INTERVENTIONS: Manual Therapy/STM/MET Strengthening/condition Ice/Heat Range of Motion Spinal Stabilization Ultrasound Stretching Iontophoresis Neuromuscular Re-ed Closed Chain Program Electrical Stim Posture/Body mechanics Biofeedback Home Exercise Program Mech./Manual Traction Therapeutic Activities GOALS: Shoulder Goals: In 3 weeks pt will increase right shoulder ROM to equal to that of the contralateral limb for improved function with ADL's. MET In 6 weeks pt will improve right shoulder strength to equal to that of the contralateral limb for improved function with ADL's. In Progress In 6 weeks pt will reduce QuickDASH disability rating to less than 25% for improved function with ADL's. MET Ankle Goals: In 3 weeks pt will improve AROM of L ankle to equal to that of the R ankle for improved function with ADL's. In 4 weeks pt will be able to ambulate 2 laps around the track with good gait mechanics for improved function with ADL's. In 6 weeks pt will improve L ankle strength to equal to that of the R ankle for improved function with ADL's. PATIENT'S GOAL: Improve shoulder strength and function. Status of Patient's Goals: Shoulder Goals: 2/3 MET Ankle Goals: 3/3 In Progress Patient Compliance: Good Prognosis: Good Reasons for continuing therapy: Celi is to discharge from treatment of her R shoulder today with good progression towards functional goals and good compliance with HEP. At this time her shoulder has near full ROM with lingering deficits only in strength with rotation and fatigue with ADL's. Pt is to continue with HEP independently at this time for her shoulder while PT is to shift focus to rehabilitation of her L proximal fibular fracture. At this time pt shows good healing with return to full WB status. In addition to fibular fx pt shows signs and symptoms of likely 4th distal metatarsal fracture on the L with healing but lingering bruising surrounding. Physical therapy is indicated for this patient to address the below listed L LE deficits to improve function with ADL's. Shoulder: ROM: Shoulder AROM (L,R): flexion: 160, 160, abd: 165, 165, ER: 75, 70, IR: T2, T7 Strength: Shoulder MMT (L, R) only: flexion: 5/5, 5/5 ext: 5/5, 5/5 abd: 5/5, 5/5 ER: 4+/5, 4-/5, IR: 5/5, 4/5 Outcome Measures: Quick DASH: 22.3% Impairment Ankle: ROM: Ankle AROM (L,R): DF: 13, 16, PF: 48, 83, Inversion: 32, 55, Eversion: 35, 32 Strength: Ankle MMT: not tested at this time secondary to fx still healing Palpation: pt is ttp on proximal 1/3 of L fibula as well as the distal aspect of the 4th metatarsal with bruising present on foot. Swelling is minimal in ankle Gait: significant for decreased to push off on L and decreased L stance phase. If you have any questions, please feel free to contact me at [phone]. Thank you, Maria E Amaya, PT, DPT, CLT MTDPepper
[~2018-09-14 13:00] MED LIST changes: +ASPI-1471 PO; +BUPR-147 PO; -TRAZ50TA34 PO; +TRAZ50TA52 PO
== END 2018-09-16 ==
LOC: PT 13:00
PROVIDERS: ATTEND Orthopaedic Surgery
DX: Z51.89 Encounter for other specified aftercare (principal); M25.511 Pain in right shoulder; M62.81 Muscle weakness (generalized); Z96.611 Presence of right artificial shoulder joint
CPT/HCPCS: 97161

== ENCOUNTER → 2018-09-25 | Outpatient (CLI) | payer MEDICARE, BC ==
--- NOTE | 2018-09-25 11:21 | RADIOLOGY IMAGING REPORT ---
FACILITY: [facility] PATIENT NAME: Celi Hutchinson : 1945 MR: [id number] V: [id number] EXAM DATE: ORDERING PHYSICIAN: KELVIN WIGGINS TECHNOLOGIST: [place] [facility] [place] : 1945 Visit/Account:[id number] Date of Sevice: 09/25/2018 DEXA Scan Clinical history: Osteopenia. Comparison: DEXA scan from 06/13/2014. HIP: Bone mineral density (BMD) measured in the Left total hip region correlates with a Z-score zero and a T-score of -1.5 which is osteopenia as defined by the World Health Organization. The corresponding risk of fracture in the hip is 3 times increased compared with a young adult reference population. Th is total hip value has decrease by three % since the prior study. More than 5% change is considered significant. T score left femoral neck -2.5 Bone mineral density (BMD) measured in the Femoral Neck region measures 0.692 g/cm2. FOREARM: The bone mineral density (BMD) measured in the ULTRADISTAL Left forearm, where trabecular bone predom inates, correlates with a Z-score 0.3 and a T-score of -2 which is osteopenia as defined by the World Health Organization. The corresponding risk of fracture in the distal forearm is 4 times increased compared with a young adult reference population. This value has decrease by 10.3 % since the prior study. More than 5% change is considered significant. The bone mineral density (BMD) in the MIDSHAFT of the forearm, where cortical bone predominates, esteban elates with a Z-score 0.6 and a T-score of -1.7 which is osteopenia as defined by the World Health Or ganization. The corresponding risk of fracture in the midshaft of the forearm is 3-4 times increased compared with a young adult reference population. This value has decrease by 10.3 % since the prior s tudy. More than 5% change is considered significant. IMPRESSION: 1. Left Hip: Osteopenia. There has been 3% decrease in the total hip bone mineral density since the previous exam. 2. Femoral Neck: Bone Mineral Density is 0.692 g/cm2 3. Left Forearm: Osteopenia. There has been 10.3% decrease in the bone mineral density since the p revious exam The next DEXA scan of this patient should include the following sites: L1-L4 and the left forearm. FRAX? WHO Fracture Risk Assessment Tool link: <http://www.shef.ac.uk/FRAX/tool.jsp?locationValue=9> PLEASE NOTE: 1) The World Health Organization defines low BMD as follows: T-score Normal > -1 Osteopenia < -1 and > -2.5 Osteoporosis < -2.5 without fractures Established osteoporosis < -2.5 with fractures 2) In general, you may wish to consider: Diagnosis Treatment Follow-up DEXA Normal BMD Prevention 2-3 years Osteopenia Prevention/therapy 1-2 years Osteoporosis Therapy Yearly 3) Fracture risk estimated from the T-score is more accurate for vertebral fractures (often spontane ous) than for hip fractures. Report Dictated By: Matilda Gayle MD at 09/25/2018 10:45 AM Report E-Signed By: Matilda Gayle MD at 09/25/2018 11:13 AM WSN:[id number]
--- NOTE | 2018-09-26 09:20 | RADIOLOGY IMAGING REPORT ---
FACILITY: [facility] PATIENT NAME: MAMI DALTON : [id number] MR: [id number] V: [id number] EXAM DATE: ORDERING PHYSICIAN: KELVIN WIGGINS TECHNOLOGIST: Stephanie Prescott PROCEDURE: BILATERAL DIGITAL SCREENING MAMMOGRAM WITH CAD ASSISTED INTERPRETATION & 3D TOMOSYNTHESIS. REASON FOR STUDY: Screening. FAMILY HISTORY OF BREAST CANCER: Paternal grandmother, sister and maternal cousin. BREAST PROCEDURES/TREATMENTS: None. COMPARISON: 01/22/16, 01/08/15, 01/07/14, 12/25/12, 11/25/11. VIEWS OBTAINED: Bilateral 2D & 3D full field CC & MLO projections. BREAST DENSITY: There are scattered areas of fibroglandular density throughout the breasts. MAMMOGRAM FINDINGS: The parenchymal pattern has remained stable allowing for difference in mammographic technique & patient positioning. IMPRESSION: BIRADS 1: Negative. DIAGNOSTIC CATEGORY 1--NEGATIVE. RECOMMENDATIONS: ROUTINE MAMMOGRAM AND CLINICAL EVALUATION. Dictated by: Matilda Gayle M.D. on 09/25/2018 at 17:09 Transcribed by: SALIMA on 09/26/2018 at 8:01 Approved by: Matilda Gayle M.D. on 09/26/2018 at 9:17 [facility]
== END ==
LOC: MAMO 00:37
PROVIDERS: ATTEND Nurse Practitioner Family
DX: Z12.31 Encounter for screening mammogram for malignant neoplasm of breast (principal); M85.89 Other specified disorders of bone density and structure, multiple sites
CPT/HCPCS: 77063; 77067; 77080

== ENCOUNTER 2018-10-11 11:15 | Outpatient (RCR) | payer MEDICARE, BC ==
--- NOTE | 2018-09-20 07:37 | PT PLAN OF CARE ---
Physician: Gustabo Valenzuela MD Patient is being seen: 2x/Week Therapist: Maria E Amaya, PT, DPT, CLT Medical Diagnosis: Right reverse TSA, Surgical anchor removal from prior RTC repair, Left proximal fibular fracture and ankle sprain Treatment Diagnosis: Right reverse TSA, Surgical anchor removal from prior RTC repair, Left proximal fibular fracture and ankle sprain Date of Onset: 05/29/18 Date of Initial Evaluation: 06/18/18 Date patient was last seen: 09/19/18 Number of treatments: 33 Number of cancellations/No shows: 5 INTERVENTIONS: Manual Therapy/STM/MET Strengthening/condition Ice/Heat Range of Motion Spinal Stabilization Ultrasound Stretching Iontophoresis Neuromuscular Re-ed Closed Chain Program Electrical Stim Posture/Body mechanics Biofeedback Home Exercise Program Mech./Manual Traction Therapeutic Activities GOALS: Shoulder Goals: In 3 weeks pt will increase right shoulder ROM to equal to that of the contralateral limb for improved function with ADL's. MET In 6 weeks pt will improve right shoulder strength to equal to that of the contralateral limb for improved function with ADL's. In Progress In 6 weeks pt will reduce QuickDASH disability rating to less than 25% for improved function with ADL's. MET Ankle Goals: In 3 weeks pt will improve AROM of L ankle to equal to that of the R ankle for improved function with ADL's. MET In 4 weeks pt will be able to ambulate 2 laps around the track with good gait mechanics for improved function with ADL's. MET In 6 weeks pt will improve L ankle strength to equal to that of the R ankle for improved function with ADL's. In Progress PATIENT'S GOAL: Improve shoulder strength and function. Status of Patient's Goals: Shoulder Goals: 2/3 MET Ankle Goals: 2/3 MET Patient Compliance: Good Prognosis: Good Reasons for continuing therapy: Celi shows great progress with healing of fibular fracture and ankle sprain while maintaining progress with shoulder function and stability s/p TSA. Lingering deficits remain in strength and endurance with pt to progress over the next couple sessions to independent HEP for further improvement. Pt has a history of fall risk and general LE strengthening and stability as well as gait mechanics will be addressed with independent gym program to maintain progress gained in PT and prevent future injury to ankle or shoulder. Shoulder: ROM: Shoulder AROM (L,R): flexion: 160, 160, abd: 165, 165, ER: 75, 70, IR: T2, T7 Strength: Shoulder MMT (L, R) only: flexion: 5/5, 5/5 ext: 5/5, 5/5 abd: 5/5, 5/5 ER: 4+/5, 4-/5, IR: 5/5, 4/5 Outcome Measures: Quick DASH: 22.3% Impairment Ankle: ROM: Ankle AROM (L,R): DF: 16, 16, PF: 80, 83, Inversion: 50, 55, Eversion: 35, 32 Strength: Ankle MMT (L,R): PF: 5/5, 4+/5, DF: 4/5, 4+/5, Ever: 4/5, 4+/5, Inv: 5/5, 4+/5. Gait: Pt ambulates with good gait mechanics for 2 laps prior to fatigue with increased lateral trunk sway following. If you have any questions, please feel free to contact me at [phone]. Thank you, Maria E Amaya, PT, DPT, CLT KIANA
--- NOTE | 2018-10-12 09:34 | PT PLAN OF CARE ---
Physician: Gustabo Valenzuela MD Patient is being seen: 2x/Week Therapist: Maria E Amaya, PT, DPT, CLT Medical Diagnosis: Right reverse TSA, Surgical anchor removal from prior RTC repair Treatment Diagnosis: Right reverse TSA, Surgical anchor removal from prior RTC repair Date of Onset: 05/29/18 Date of Initial Evaluation: 06/18/18 Date patient was last seen: 10/11/18 Number of treatments: 36 Number of cancellations/No shows: 7 INTERVENTIONS: Manual Therapy/STM/MET Strengthening/condition Ice/Heat Range of Motion Spinal Stabilization Ultrasound Stretching Iontophoresis Neuromuscular Re-ed Closed Chain Program Electrical Stim Posture/Body mechanics Biofeedback Home Exercise Program Mech./Manual Traction Therapeutic Activities GOALS: Shoulder Goals: In 3 weeks pt will increase right shoulder ROM to equal to that of the contralateral limb for improved function with ADL's. MET In 6 weeks pt will improve right shoulder strength to equal to that of the contralateral limb for improved function with ADL's. MET In 6 weeks pt will reduce QuickDASH disability rating to less than 25% for improved function with ADL's. MET Ankle Goals: In 3 weeks pt will improve AROM of L ankle to equal to that of the R ankle for improved function with ADL's. MET In 4 weeks pt will be able to ambulate 2 laps around the track with good gait mechanics for improved function with ADL's. MET In 6 weeks pt will improve L ankle strength to equal to that of the R ankle for improved function with ADL's. MET PATIENT'S GOAL: Improve shoulder strength and function. Status of Patient's Goals: Shoulder Goals: 3/3 MET Ankle Goals: 3/3 MET Patient Compliance: Good Prognosis: Good Reasons for discharge from therapy: Celi is to discharge from physical therapy at this time secondary to completion of all functional goals for both shoulder and ankle. At the time of discharge pt reported occasional ache in the shoulder but otherwise good mobility and function with ADL's. Ankle shows significant improvement with no longer pain at fracture site and full WB. Upon discharge pt is to continue with HEP for LE strengthening and stability to decrease fall risk and improve endurance with ADLs'. Shoulder: ROM: Shoulder AROM (L,R): flexion: 160, 160, abd: 165, 165, ER: 75, 70, IR: T2, T7 Strength: Shoulder MMT (L, R) only: flexion: 5/5, 5/5 ext: 5/5, 5/5 abd: 5/5, 5/5 ER: 5/5, 4+/5, IR: 5/5, 4+/5 Outcome Measures: Quick DASH: 22.3% Impairment Ankle: ROM: Ankle AROM (L,R): DF: 16, 16, PF: 80, 83, Inversion: 50, 55, Eversion: 35, 32 Strength: Ankle MMT (L,R): PF: 5/5, 4+/5, DF: 5/5, 5/5, Ever: 5/5, 4+/5, Inv: 5/5, 4+/5. If you have any questions, please feel free to contact me at [phone]. Thank you, Maria E Amaya, PT, DPT, CLT KIANA
== END 2018-10-11 18:00 | disposition home or self-care (01) ==
LOC: PT 11:15
PROVIDERS: ATTEND Orthopaedic Surgery
DX: Z51.89 Encounter for other specified aftercare (principal); M25.511 Pain in right shoulder; M62.81 Muscle weakness (generalized); Z96.611 Presence of right artificial shoulder joint; S82.832D Other fracture of upper and lower end of left fibula, subsequent encounter for closed fracture with routine healing; S93.402D Sprain of unspecified ligament of left ankle, subsequent encounter

== ENCOUNTER → 2018-10-19 | Outpatient (CLI) | payer MEDICARE, BC ==
--- NOTE | 2018-10-19 16:37 | RADIOLOGY IMAGING REPORT ---
FACILITY: [facility] - [place] PATIENT NAME: Celi Hutchinson : 1945 MR: [id number] V: [id number] EXAM DATE: ORDERING PHYSICIAN: KELVIN WIGGINS TECHNOLOGIST: [place] [facility] [place] Patient: Celi Hutchinson : 1945 Visit/Account:[id number] Date of Sevice: 10/19/2018 HIPS BILATERAL Indication: Chronic right and left hip pain. Comparison: Left hip radiograph 11/26/2014 Findings: Mineralization of the bones the pelvis and the proximal right left femur are normal. There is mild narrowing of the right and left hip joint space. There is no evidence of fracture. The soft t issues are normal. IMPRESSION: Mild degenerative changes right left hip joint. Report Dictated By: Geovany Campos at 10/19/2018 4:28 PM Report E-Signed By: Geovany Campos at 10/19/2018 4:30 PM WSN:[id number]
== END ==
LOC: RAD 13:43
PROVIDERS: ATTEND Nurse Practitioner Family
DX: M16.0 Bilateral primary osteoarthritis of hip (principal)
CPT/HCPCS: 73522